=== PATIENT | male | born 1985 | race African-American/Black ===

== ENCOUNTER 2017-10-27 17:05 | Emergency (ER) | payer MEDICAID ==
[~2017-10-27] VITALS: Ht 170.2 cm; Wt 63.5 kg
[~2017-10-27 17:05] MED LIST: ALBU8.5H IH; BENZ1 PO; DIVA-6 PO; DIVA500T98 PO; DOCU-416 PO; FOLI-68 PO; MULT-1379 PO; RANI-324 PO; RISP-34 PO; RISP2TAB70 PO; THIA100T6 PO; VALP250C30 PO
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
[2017-10-27 17:13] VITALS: BP 125/87
--- NOTE | 2017-10-27 18:02 | RADIOLOGY IMAGING REPORT ---
FACILITY: [facility] PATIENT NAME: Yves Hernandez : 1985 MR: [id number] V: [id number] EXAM DATE: ORDERING PHYSICIAN: YUNI DELEON TECHNOLOGIST: Location: [facility] - [place] Patient: Yves Hernandez : 1985 Visit/Account:[id number] Date of Sevice: 10/27/2017 KUB SINGLE VIEW ABDOMEN HISTORY: right flank pain COMPARISON: None FINDINGS: Lower chest: Negative Abdomen: No free intraperitoneal air. There is a nonobstructive bowel gas pattern. There are no abn ormal calcifications. Bony structures are unremarkable. IMPRESSION: 1. Normal Report Dictated By: Eliecer Buckner MD at 10/27/2017 5:58 PM Report E-Signed By: Eliecer Buckner MD at 10/27/2017 5:58 PM WSN:[id number]
== END 2017-10-27 18:16 | disposition home or self-care (01) ==
LOC: ER 17:20
DX: R10.9 Unspecified abdominal pain (principal)
CPT/HCPCS: 74018; 81001; 99282

== ENCOUNTER 2017-11-18 17:19 | Emergency (ER) | payer MEDICAID ==
[~2017-11-18] VITALS: Ht 170.2 cm; Wt 63.5 kg
[~2017-11-18 17:19] MED LIST changes: -LURA40TA3 PO; -NAPR500T75 PO
--- NOTE | 2017-11-18 17:30 | ER Report ---
History and Physical Time Seen By MD: 17:30 HPI/ROS CHIEF COMPLAINT: Psychosis HISTORY OF PRESENT ILLNESS: This is a 32-year-old male who is well known to the emergency department who arrives via EMS for acute psychosis. Patient was seen by his provider Nelia Adams today and was apparently prescribed a new medication according to his brother they are unsure what medication he is on. He did recently fill a Latuda prescription. Patient is not currently suicidal. Patient is now wanting to leave the emergency department. Denies fevers, chills , A, nausea, vomiting, chest pain, shortness of breath. REVIEW OF SYSTEMS: Constitutional: No fever, no chills. Eyes: No discharge. ENT: No sore throat. Cardiovascular: No chest pain, no palpitations. Respiratory: No cough, no shortness of breath. Gastrointestinal: No abdominal pain, no vomiting. Genitourinary: No hematuria. Musculoskeletal: No back pain. Skin: No rashes. Neurological: No headache. Allergies: Coded Allergies: No Known Drug Allergies (Unverified , 11/18/17) Home Meds Active Scripts Valproic Acid (DEPAKENE) 250 Mg Capsule, 500 MG PO BID for bipolar disorder, # 20 CAPSULE Prov:EMMA AKERS DO 09/16/17 Risperidone (RISPERDAL) 2 Mg Tablet, 2 MG PO DAILY for mood disorder, #5 Prov:EMMA AKERS DO 09/16/17 Reported Medications Divalproex Sodium (DIVALPROEX SODIUM) 500 Mg Tablet.dr, 500 MG PO BID, TAB 08/16/17 Risperidone (RISPERIDONE) 2 Mg Tablet, 2 MG PO QHS 08/16/17 Past Medical/Surgical History Patient has a past medical and surgical history of hypertension, GERD, uses cannabis, schizoaffective disorder, psychosis. Hx Smoking: Yes Smoking Status: Never Smoker, Current: Every Day Smoker Exposure to Second Hand Smoke?: Yes Hx Substance Use Disorder: No (hx of cannibus) Hx Alcohol Use: No Constitutional Vital Sign - Last 24 Hours 11/18/17 17:34 Temp 98.5 Pulse 86 Resp 18 B/P (MAP) 130/99 Pulse Ox 97 O2 Delivery Room Air Physical Exam General Appearance: The patient is alert, has no immediate need for airway protection and no signs of toxicity. Eyes: Pupils equal and round no pallor or injection. ENT, Mouth: Mucous membranes are moist. Respiratory: There are no retractions, lungs are clear to auscultation. Cardiovascular: Regular rate and rhythm. Gastrointestinal: Abdomen is soft and non tender, no masses, bowel sounds normal. Neurological: Alert and oriented 4. Following all commands. No focal neuro deficits. Moving all tremors. Skin: Warm and dry, no rashes. Musculoskeletal: Neck is supple non tender. Extremities are nontender, nonswollen and have full range of motion. Psych: Cooperative at this time. Shortly after arrival patient's wanting to leave and walked out the door, no suicidality. DIFFERENTIAL DIAGNOSIS: After history and physical exam differential diagnosis was considered for psychosis. Medical Decision Making ED Course/Re-evaluation ED Course Patient was admitted to room via EMS. History and physical were obtained. Differential diagnoses were considered. I was the bedside with Dr. Manuel during the exam patient was not indicating suicidal ideations or homicidal ideations. Shortly after arrival and long discussion with his brother the patient stated that he just wanted leave and walked out the door. No other concerns or interactions with the patient after he left the building. Decision to Disposition Date: Nov 18, 2017 Decision to Disposition Time: 17:48 Depart Departure Latest Vital Signs Vital Signs Date Time Temp Pulse Resp B/P (MAP) Pulse Ox O2 Delivery O2 Flow Rate FiO2 11/18/17 17:34 98.5 86 18 130/99 97 Room Air Impression: Primary Impression: Acute psychosis Additional Impression: Malingering Condition: Improved Disposition: HOME OR SELF-CARE Additional Instructions: Drink plenty of fluids. Get plenty of rest. Take your medications as prescribed. Follow up with Nelia Sales this week. Return for any other concerns. Problem Qualifiers DELIA YOST [employer] Nov 18, 2017 17:30
[2017-11-18 17:34] VITALS: BP 130/99
[2017-11-18] MEDS ORDERED: HALOPERIDOL 5 MG TAB PO ONE (17:45)
== END 2017-11-18 17:56 | disposition home or self-care (01) ==
LOC: ER 17:40
DX: F29 Unspecified psychosis not due to a substance or known physiological condition (principal); Z76.5 Malingerer [conscious simulation]
CPT/HCPCS: 99282

== ENCOUNTER → 2017-11-18 | Outpatient (CLI) | payer MEDICAID ==
[~2017-11-18] MED LIST changes: +LURA40TA3 PO; +NAPR500T75 PO
== END ==
LOC: AMB 17:12
PROVIDERS: ATTEND Nurse Practitioner
DX: R45.851 Suicidal ideations (principal)
CPT/HCPCS: A0425; A0429

== ENCOUNTER 2017-11-21 06:44 | Emergency (ER) | payer MEDICAID ==
[~2017-11-21] VITALS: Ht 170.2 cm; Wt 63.5 kg
[~2017-11-21 06:44] MED LIST changes: -LURA40TA3 PO; -NAPR500T75 PO
--- NOTE | 2017-11-21 07:17 | ER Report ---
History and Physical Time Seen By MD: 07:06 Hx. of Stated Complaint: SORE THROAT HPI/ROS CHIEF COMPLAINT: Sore throat HISTORY OF PRESENT ILLNESS: Brought in by EMS for sore throat onset this morning no known fevers or chills but occasional malaise patient says. Also, intermittent right lower rib pain "since I was 17" REVIEW OF SYSTEMS: Respiratory: No cough, no dyspnea. Cardiovascular: No chest pain, no palpitations. Gastrointestinal: No vomiting, no abdominal pain. Musculoskeletal: No back pain. Allergies: Coded Allergies: No Known Drug Allergies (Unverified , 11/21/17) Home Meds Active Scripts Valproic Acid (DEPAKENE) 250 Mg Capsule, 500 MG PO BID for bipolar disorder, # 20 CAPSULE Prov:EMMA AKERS DO 09/16/17 Risperidone (RISPERDAL) 2 Mg Tablet, 2 MG PO DAILY for mood disorder, #5 Prov:EMMA AKERS DO 09/16/17 Reported Medications Divalproex Sodium (DIVALPROEX SODIUM) 500 Mg Tablet.dr, 500 MG PO BID, TAB 08/16/17 Risperidone (RISPERIDONE) 2 Mg Tablet, 2 MG PO QHS 08/16/17 Hx Smoking: Yes Smoking Status: Never Smoker, Current: Every Day Smoker Exposure to Second Hand Smoke?: Yes Hx Substance Use Disorder: No (hx of cannibus) Hx Alcohol Use: No Constitutional Vital Sign - Last 24 Hours 11/21/17 11/21/17 06:48 07:19 Temp 97.9 Pulse 77 88 Resp 16 14 B/P (MAP) 139/107 124/88 (100) Pulse Ox 96 97 O2 Delivery Room Air Room Air Physical Exam General Appearance: The patient is alert, has no immediate need for airway protection and no current signs of toxicity. No acute distress Eyes: Pupils equal and round no injection. HEENT: Posterior pharynx mild erythema no significant tonsillar swelling or exudates appreciated no uvula shift Respiratory: Chest is non tender, lungs are clear to auscultation. Cardiac: regular rate and rhythm no murmurs gallops or rubs Gastrointestinal: Abdomen is soft and non tender, no masses, bowel sounds normal. Musculoskeletal: Neck: Neck is supple and non tender. Right lower inferior rib palpated with minimal tenderness and no crepitus Extremities have full range of motion and are non tender. Skin: No rashes or lesions. No edema DIFFERENTIAL DIAGNOSIS: After history and physical exam differential diagnosis was considered for viral pharyngitis, strep pharyngitis other pharyngitis, cracked rib, strained intercostal, pain from old injury no signs of pneumonia or other serious process Medical Decision Making Data Points Laboratory Hematology Test 11/21/17 07:02 Group A Streptococcus Screen Negative (NEGATIVE) Chemistry Test 11/21/17 07:02 Group A Streptococcus Screen Negative (NEGATIVE) ED Course/Re-evaluation ED Course Plan of care agreed upon prior to orders placed. 11/21/2017 7:39:14 am : The patient was updated with the following results: Negative strep test. He asked for food earlier and has been provided food. We are pending influenza studies. Re-evaluation 11/21/2017 7:44:28 am patient is asking to leave his brother has arrived he agreed to leave his cell phone number for call back should his influenza serologies come back positive. He states he has to go and is leaving now. Decision to Disposition Date: Nov 21, 2017 Decision to Disposition Time: 07:45 Depart Departure Latest Vital Signs Vital Signs Date Time Temp Pulse Resp B/P (MAP) Pulse Ox O2 Delivery O2 Flow Rate FiO2 11/21/17 07:19 88 14 124/88 (100) 97 Room Air 11/21/17 06:48 97.9 Impression: Primary Impression: Flank pain, chronic Additional Impression: ST (sore throat) Condition: Improved Disposition: HOME OR SELF-CARE Referrals: ДМИТРИЙ HUGGINS (PCP) Patient Instructions: Sore Throat in Children (ED) Problem Qualifiers BAM REYES MD Nov 21, 2017 07:17
[2017-11-21 07:19] VITALS: BP 124/88
== END 2017-11-21 07:49 | disposition home or self-care (01) ==
LOC: ER 06:47
DX: J02.9 Acute pharyngitis, unspecified (principal); M54.9 Dorsalgia, unspecified
CPT/HCPCS: 87081; 87502; 87880; 99283

== ENCOUNTER → 2017-11-21 | Outpatient (CLI) | payer MEDICAID ==
[~2017-11-21] MED LIST changes: +LURA40TA3 PO; +NAPR500T75 PO
== END ==
LOC: AMB 06:24
PROVIDERS: ATTEND Nurse Practitioner
DX: J02.9 Acute pharyngitis, unspecified (principal)
CPT/HCPCS: A0425; A0429

== ENCOUNTER 2017-11-29 22:44 | Emergency (ER) | payer MEDICAID ==
--- NOTE | 2017-11-29 22:49 | ER Report ---
History and Physical Time Seen By MD: 22:49 HPI/ROS CHIEF COMPLAINT: Right side pain HISTORY OF PRESENT ILLNESS: 32-year-old male presents ambulatory to the ER complaining of shooting right-sided pain. He points to the mid axillary line at the margin of the rib cage. He states she's been having the pain for a long time is much worse tonight. Patient denies hematuria, cough, fever, nausea or vomiting. Review of patient's recent ER visit shows that he's had previous symptoms here. Patient had a urinalysis is unremarkable. He's had a KUB which is unremarkable. He's had chest x-ray several months back which was unremarkable. She reports chronic pain there since an injury when he was 17. REVIEW OF SYSTEMS: Respiratory: No cough, no dyspnea. Cardiovascular: No chest pain, no palpitations. Gastrointestinal: As above Musculoskeletal: As above Allergies: Coded Allergies: No Known Drug Allergies (Unverified , 11/21/17) Home Meds Active Scripts Naproxen (NAPROSYN) 500 Mg Tablet, 500 MG PO Q12H Y for PAIN, #14 TAB Prov:EMMA AKERS DO 11/29/17 Valproic Acid (DEPAKENE) 250 Mg Capsule, 500 MG PO BID for bipolar disorder, # 20 CAPSULE Prov:EMMA AKERS DO 09/16/17 Risperidone (RISPERDAL) 2 Mg Tablet, 2 MG PO DAILY for mood disorder, #5 Prov:EMMA AKERS DO 09/16/17 Reported Medications Lurasidone Hcl (LATUDA) 40 Mg Tablet, 40 MG PO 11/29/17 Divalproex Sodium (DIVALPROEX SODIUM) 500 Mg Tablet.dr, 500 MG PO BID, TAB 08/16/17 Risperidone (RISPERIDONE) 2 Mg Tablet, 2 MG PO QHS 08/16/17 Past Medical/Surgical History ? Bipolar disorder Hx Smoking: Yes Smoking Status: Never Smoker, Current: Every Day Smoker Exposure to Second Hand Smoke?: Yes Hx Substance Use Disorder: No (hx of cannibus) Hx Alcohol Use: No Constitutional Vital Sign - Last 24 Hours 11/29/17 22:50 Temp 98.4 Pulse 99 Resp 20 B/P (MAP) 135/107 Pulse Ox 98 O2 Delivery Room Air Physical Exam General Appearance: The patient is alert, has no immediate need for airway protection and no current signs of toxicity.. Vital signs stable, afebrile Eyes: Pupils equal and round no injection. Respiratory: Chest is non tender, lungs are clear to auscultation. Cardiac: regular rate and rhythm Gastrointestinal: Abdomen is soft and non tender, no masses, bowel sounds normal. Musculoskeletal: Neck: Neck is supple and non tender. Back: There is some tenderness on palpation at the costal margin in the right midaxillary line. There is no rash, bruising or induration. There is mild CVA tenderness. Extremities have full range of motion and are non tender. Skin: No rashes or lesions. DIFFERENTIAL DIAGNOSIS: After history and physical exam differential diagnosis was considered for flank pain including but not limited to musculoskeletal causes, kidney stone, pyelonephritis, shingles, and intra-abdominal causes such as diverticulitis and appendicitis. Medical Decision Making Data Points Laboratory Hematology Test 11/29/17 23:11 Urine Color Yellow Urine Clarity Clear Urine pH 7.0 pH (4.8-9.5) Urine Specific [place] 1.005 Urine Protein Negative mg/dL (NEGATIVE) Urine Glucose (UA) Negative mg/dL (NEGATIVE) Urine Ketones Negative mg/dL (NEGATIVE) Urine Blood Negative (NEGATIVE) Urine Nitrite Negative (NEGATIVE) Urine Bilirubin Negative (NEGATIVE) Urine Urobilinogen Negative mg/dL (0.2-1.9) Urine Leukocyte Esterase Negative (NEGATIVE) Urine RBC <1 /HPF (0-2/HPF) Urine WBC <1 /HPF (0-5/HPF) Urine Squamous Epithelial Cells None /LPF (</=FEW) Urine Bacteria Few /HPF (NONE-FEW) Urine Mucus None /HPF (NONE-FEW) Chemistry Test 11/29/17 23:11 Urine Color Yellow Urine Clarity Clear Urine pH 7.0 pH (4.8-9.5) Urine Specific [place] 1.005 Urine Protein Negative mg/dL (NEGATIVE) Urine Glucose (UA) Negative mg/dL (NEGATIVE) Urine Ketones Negative mg/dL (NEGATIVE) Urine Blood Negative (NEGATIVE) Urine Nitrite Negative (NEGATIVE) Urine Bilirubin Negative (NEGATIVE) Urine Urobilinogen Negative mg/dL (0.2-1.9) Urine Leukocyte Esterase Negative (NEGATIVE) Urine RBC <1 /HPF (0-2/HPF) Urine WBC <1 /HPF (0-5/HPF) Urine Squamous Epithelial Cells None /LPF (</=FEW) Urine Bacteria Few /HPF (NONE-FEW) Urine Mucus None /HPF (NONE-FEW) Urinalysis Test 11/29/17 23:11 Urine Color Yellow Urine Clarity Clear Urine pH 7.0 pH (4.8-9.5) Urine Specific [place] 1.005 Urine Protein Negative mg/dL (NEGATIVE) Urine Glucose (UA) Negative mg/dL (NEGATIVE) Urine Ketones Negative mg/dL (NEGATIVE) Urine Blood Negative (NEGATIVE) Urine Nitrite Negative (NEGATIVE) Urine Bilirubin Negative (NEGATIVE) Urine Urobilinogen Negative mg/dL (0.2-1.9) Urine Leukocyte Esterase Negative (NEGATIVE) Urine RBC <1 /HPF (0-2/HPF) Urine WBC <1 /HPF (0-5/HPF) Urine Squamous Epithelial Cells None /LPF (</=FEW) Urine Bacteria Few /HPF (NONE-FEW) Urine Mucus None /HPF (NONE-FEW) ED Course/Re-evaluation ED Course Patient was admitted to an examination room. H&P was done. The dental diagnoses was considered. On conical examination. Patient has right-sided rib pain. He is a long-standing history of right-sided rib and flank pain. There are numerous ER visits documenting evaluation of this over the last several weeks. Patient notes exacerbation of his pain over the last 24-48 hours. Patient denies fever, chills or productive cough. He denies dysuria, frequency or hematuria. Patient's medicated with ibuprofen for pain. A urinalysis was performed which was unremarkable for evidence of hematuria or infection. Patient's advised conservative treatment of ibuprofen 600 mg 3 times daily. Patient advised to apply heat to his flank and follow-up with primary care if unimproved in 3-5 days. Decision to Disposition Date: Nov 29, 2017 Decision to Disposition Time: 23:04 Depart Departure Latest Vital Signs Vital Signs Date Time Temp Pulse Resp B/P (MAP) Pulse Ox O2 Delivery O2 Flow Rate FiO2 11/29/17 22:50 98.4 99 20 135/107 98 Room Air Impression: Primary Impression: Chronic right flank pain Condition: Improved Disposition: HOME OR SELF-CARE Referrals: ДМИТРИЙ HUGGINS (PCP) New Scripts Naproxen (NAPROSYN) 500 Mg Tablet 500 MG PO Q12H Y for PAIN, #14 TAB Prov: EMMA AKERS DO 11/29/17 Patient Instructions: Flank Pain (ED) Additional Instructions: Follow-up with primary care if unimproved in 3-5 days EMMA AKERS DO Nov 29, 2017 22:49
[2017-11-29 22:50] VITALS: BP 135/107
[2017-11-29] MEDS ORDERED: ACETAMINOPHEN 325 MG TAB PO ONE (23:00)
[2017-11-29] MEDS ORDERED: IBUPROFEN 600 MG TAB PO ONE (23:00)
[2017-11-29] MEDS ORDERED: LURA40TA3 PO (23:04)
[2017-11-29] MEDS ORDERED: NAPR500T75 PO (23:35)
[2017-11-29] MEDS ORDERED: NAPROXEN 500 MG PO ONE (23:35)
== END 2017-11-29 23:40 | disposition home or self-care (01) ==
LOC: ER 22:56
DX: R07.81 Pleurodynia (principal); M54.9 Dorsalgia, unspecified
CPT/HCPCS: 81001; 99284